=== PATIENT | female | born 1990 | race Caucasian/White ===

== ENCOUNTER 2017-02-18 08:01 | Emergency (ER) | payer OTHER ==
[~2017-02-18] VITALS: Ht 167.6 cm; Wt 76.5 kg
[2017-02-18 08:02] VITALS: Ht 167.6 cm; Wt 76.5 kg
[2017-02-18] MEDS ORDERED: SOD CHLORIDE 0.9% 1,000 ML IV STA (08:17)
[2017-02-18] MEDS ORDERED: KETOROLAC 30 MG INJ IV STA (08:17)
[2017-02-18 08:55] LABS: BASOPHILS % 0.3 % (0.0-2.0); EOSINOPHILS % 0.2 % (0.0-7.0); HEMATOCRIT 37.1 % (37.0-47.0); HEMOGLOBIN 12.4 g/dl (12.0-16.0); LYMPHOCYTES # 1.2 10^3/ul (0.8-2.9); LYMPHOCYTES % 10.6 % (15.0-51.0); MEAN CORPUSCULAR HEMOGLOBIN 28.3 pg (29.0-33.0); MEAN CORPUSCULAR HGB CONC 33.4 g/dl (32.0-37.0); MEAN CORPUSCULAR VOLUME 84.7 fl (82.0-101.0); MEAN PLATELET VOLUME 11.9 fl (7.4-10.4); MONOCYTE # 0.6 10^3/ul (0.3-0.9); MONOCYTES % 5.7 % (0.0-11.0); NEUTROPHIL # 9.3 10^3/ul (1.6-7.5); NEUTROPHILS % 82.7 % (39.0-77.0); PLATELET COUNT 187 10^3/UL (140-415); RED BLOOD COUNT 4.38 10^6/ul (4.20-5.40); RED CELL DISTRIBUTION WIDTH 14.1 % (11.5-14.5); WHITE BLOOD COUNT 11.2 10^3/ul (4.8-10.8)
[2017-02-18 09:08] LABS: ADD UMIC NO; UR ASCORBIC ACID NEGATIVE (NEGATIVE); UR BACTERIA FEW /HPF (NONE SEEN); UR BILIRUBIN (Dip) NEGATIVE (NEGATIVE); UR BLOOD (Dip) NEGATIVE (NEGATIVE); UR CLARITY SLIGHTLY CLOUDY (CLEAR); UR COLOR YELLOW (YELLOW); UR GLUCOSE (Dip) NEGATIVE (NEGATIVE); UR KETONES (Dip) NEGATIVE (NEGATIVE); UR LEUKOCYTE ESTERASE (Dip) NEGATIVE Leu/ul (NEGATIVE); UR MUCUS FEW /HPF (NONE SEEN); UR NITRITE (Dip) NEGATIVE (NEGATIVE); UR RBC 2 /HPF (0-5); UR SPECIFIC GRAVITY (Dip) 1.025 (1.003-1.030); UR SQUAMOUS EPITHELIAL CELL MODERATE /HPF (FEW); UR TOTAL PROTEIN (Dip) NEGATIVE (NEGATIVE); UR UROBILINOGEN (Dip) NEGATIVE (NEGATIVE)
--- NOTE | 2017-02-18 09:13 | ERD ---
ER Documentation Chief Complaint Date/Time DATE: 02/18/17 TIME: 09:07 Chief Complaint fever with body pain and dizziness x yesterday HPI 26-year-old otherwise healthy female presents the emergency department for complaints of fever, body aches which she describes as "bone pain", dizziness which she describes as lightheadedness, sore throat, and cough since yesterday. Patient states she is attempted to treat her symptoms with Motrin with only mild relief. She denies any nausea, vomiting, diarrhea, abdominal pain, dysuria , hematuria or vaginal discharge. ROS All systems reviewed and are negative except as per history of present illness. Allergies Allergies: Coded Allergies: No Known Drug Allergy (Verified Allergy, Unknown, 02/18/17) PMhx/Soc History of Surgery: Yes () Anesthesia Reaction: No Hx Neurological Disorder: No Hx Respiratory Disorders: No Hx Cardiac Disorders: No Hx Psychiatric Problems: No Hx Miscellaneous Medical Probl: Yes (9 months , due for next week. ) Hx Alcohol Use: No Hx Substance Use: No Hx Tobacco Use: No Physical Exam Vitals Vital Signs Date Time Temp Pulse Resp B/P Pulse Ox O2 Delivery O2 Flow Rate FiO2 02/18/17 08:02 101.0 99 18 110/59 100 Physical Exam Const: Well-developed, well-nourished, in mild distress Head: Atraumatic Eyes: Normal Conjunctiva ENT: Normal External Ears, Nose and Mouth. Anterior painful lymphadenopathy. Posterior pharynx erythematous with 2+ left-sided tonsillar swelling with exudate. Uvula midline. Phonation intact. No trismus. Neck: Full range of motion..~ No meningismus. Resp: Moving air well. Clear to auscultation bilaterally, no wheezes, rhonchus, or rales. Cardio: Regular rate and rhythm, no murmurs Abd: Soft, non tender, non distended. Normal bowel sounds Skin: No petechiae or rashes Back: No midline or flank tenderness Ext: No cyanosis, or edema Neur: Awake and alert Psych: Normal Mood and Affect Result Diagram: 02/18/17 0840 02/18/17 0840 Results 24 hrs Laboratory Tests Test 02/18/17 08:25 02/18/17 08:40 Urine Color YELLOW Urine Clarity SLIGHTLY CLOUDY Urine pH 6.0 Urine Specific [place] 1.025 Urine Ketones NEGATIVEmg/dL Urine Nitrite NEGATIVEmg/dL Urine Bilirubin NEGATIVEmg/dL Urine Urobilinogen NEGATIVEmg/dL Urine Leukocyte Esterase NEGATIVELeu/ul Urine Microscopic RBC 2/HPF Urine Microscopic WBC 3/HPF Urine Squamous Epithelial Cells MODERATE/HPF Urine Bacteria FEW/HPF Urine Mucus FEW/HPF Urine Hemoglobin NEGATIVEmg/dL Urine Glucose NEGATIVEmg/dL Urine Total Protein NEGATIVEmg/dl White Blood Count 11.210^3/ul Red Blood Count 4.3810^6/ul Hemoglobin 12.4g/dl Hematocrit 37.1% Mean Corpuscular Volume 84.7fl Mean Corpuscular Hemoglobin 28.3pg Mean Corpuscular Hemoglobin Concent 33.4g/dl Red Cell Distribution Width 14.1% Platelet Count 84057^3/UL Mean Platelet Volume 11.9fl Neutrophils % 82.7% Lymphocytes % 10.6% Monocytes % 5.7% Eosinophils % 0.2% Basophils % 0.3% Nucleated Red Blood Cells % 0.0/100WBC Neutrophils # 9.310^3/ul Lymphocytes # 1.210^3/ul Monocytes # 0.610^3/ul Eosinophils # 0.010^3/ul Basophils # 0.010^3/ul Nucleated Red Blood Cells # 0.010^3/ul Sodium Level 139mmol/L Potassium Level 3.9mmol/L Chloride Level 102mmol/L Carbon Dioxide Level 27mmol/L Anion Gap 14 Blood Urea Nitrogen 8mg/dl Creatinine 0.75mg/dl Glucose Level 93mg/dl Calcium Level 8.8mg/dl Total Bilirubin 0.2mg/dl Direct Bilirubin 0.00mg/dl Indirect Bilirubin 0.2mg/dl Aspartate Amino Transf (AST/SGOT) 25IU/L Alanine Aminotransferase (ALT/SGPT) 33IU/L Alkaline Phosphatase 56IU/L Total Protein 7.9g/dl Albumin 4.3g/dl Globulin 3.60g/dl Albumin/Globulin Ratio 1.19 Current Medications Medications (Trade) Dose Ordered Sig/Raulito Route PRN Reason Start Time Stop Time Status Last Admin Dose Admin Sodium Chloride (NS) 1,000 ml @ 1,000 mls/hr Q1H STAT IV 02/18/17 08:17 02/18/17 09:16 DC 02/18/17 08:44 Ketorolac Tromethamine (Toradol) 30 mg ONCE STAT IV 02/18/17 08:17 02/18/17 08:20 DC 02/18/17 08:43 Procedures/MDM This is a 26-year-old female who presents emergency department for complaints of fever, body aches, "bone pain", lightheadedness, sore throat, and cough 1 day. Vital signs reviewed. Patient febrile at 101.0 upon arrival. Patient otherwise not tachycardic normotensive and non-hypoxic. Physical exam with evidence of left-sided tonsillar swelling with exudate, however no signs concerning for peritonsillar abscess. Exam otherwise unremarkable. CBC showed no evidence of significantly elevated white blood cells or severe anemia. CMP showed no evidence of electrolyte abnormalities, severe acidosis, alkalosis , renal failure, or liver disease. UA showed no evidence of acute infection or hematuria. Urine test was negative. Patient's fever well controlled while in the emergency department. She received 1 L of fluids and reports improvement of her dizzy symptoms. Based on history and clinical exam findings the patient does not appear to have evidence of pneumonia, urinary tract infection, bacteremia, sepsis, or meningitis. For these reasons I do not believe it is necessary to obtain additional laboratory testing or diagnostic imaging. I believe it would be appropriate for symptom control, and close outpatient primary care follow-up. History and physical consistent with likely acute bacterial pharyngitis, cough, and fever. I have recommended Tylenol and Motrin for fever control as well as a humidifier and fluids. Patient to begin antibiotics. Based on patient's history of present illness and physical examination the decision was made to discharge. The patient was re-evaluated after ED treatment and stabilizing measures, and symptoms have improved. There is no evidence of life threatening injuries or illnesses at this time. On re-examination, patient resting in no distress, stable vital signs, reports feeling better and safe for discharge with outpatient follow up with PMD in 1-2 days. Patient given return precautions. Copies of the lab work provided to patient. Departure Diagnosis: Primary Impression: Fever Fever type: unspecified Qualified Code: R50.9 - Fever, unspecified fever cause Additional Impressions: Sore throat Cough Body aches SAULO PERRIN PA-C Feb 18, 2017 09:13
[2017-02-18 09:20] LABS: ALBUMIN 4.3 g/dl (3.3-4.9); ALBUMIN/GLOBULIN RATIO 1.19; BILIRUBIN,INDIRECT 0.2 mg/dl (0-1.1); BILIRUBIN,TOTAL 0.2 mg/dl (0.2-1.3); CALCIUM 8.8 mg/dl (8.4-10.2); CREATININE 0.75 mg/dl (0.44-1.00); POTASSIUM 3.9 mmol/L (3.5-5.1); TOTAL PROTEIN 7.9 g/dl (6.1-8.1)
[2017-02-18] MEDS ORDERED: AMO500 PO (09:39)
[2017-02-18] MEDS ORDERED: NAPR-260 PO (09:39)
[2017-02-18] MEDS ORDERED: D-ME473S2 PO (09:39)
[2017-02-18] MEDS ORDERED: ACET325T33 PO (09:39)
[2017-02-18 09:46] VITALS: BP 100/65; PULSE 80; RESP 17; TEMP 99.2
== END 2017-02-18 09:53 | disposition home or self-care (01) ==
LOC: FTE 08:01
DX: R50.9 Fever, unspecified (principal); J02.9 Acute pharyngitis, unspecified; R05 Cough; R52 Pain, unspecified
CPT/HCPCS: 36415; 80053; 81001; 85025; 96374; J1885; J7030; Z7502; 81003

== ENCOUNTER 2017-10-14 09:34 | Emergency (ER) | END 2017-10-14 13:01 | disposition left against medical advice (07) ==

== ENCOUNTER 2017-10-17 11:00 | Emergency (ER) | END 2017-10-17 11:24 | disposition left against medical advice (07) ==

== ENCOUNTER 2018-06-21 15:54 | Emergency (ER) | END 2018-06-21 18:16 | disposition home or self-care (01) ==

== ENCOUNTER 2018-06-24 21:13 | Emergency (ER) | END 2018-06-25 01:00 | disposition home or self-care (01) ==

== ENCOUNTER 2018-06-28 09:35 | Observation (INO) | END 2018-06-29 00:45 | disposition home or self-care (01) ==

== ENCOUNTER 2018-06-30 10:46 | Emergency (ER) | END 2018-06-30 16:58 | disposition home or self-care (01) ==

== ENCOUNTER 2018-11-15 12:53 | Emergency (ER) | payer OTHER ==
[~2018-11-15] VITALS: Ht 170.2 cm; Wt 85.7 kg
[~2018-11-15 12:53] MED LIST: FIORICET PO; HYDR-4011 PO
[2018-11-15 13:16] VITALS: BP 118/62; PULSE 81; RESP 18; Ht 170.2 cm; Wt 85.7 kg
--- NOTE | 2018-11-18 22:46 | ERD ---
ER Documentation Chief Complaint Chief Complaint feeling fatigue, dx;anemia taking iron pills HPI 28-year-old female patient with possible history of anemia presents to the ED stating that she feels weak and tired. States that she has bilateral numbness of her hands. Denies any fever, chills, nausea, vomiting, diarrhea, neck stif fness, vomiting, shortness of breath. Reports that her last menstruation was a few weeks ago. Denies any vaginal bleeding, vaginal discharge. ROS All systems reviewed and are negative except as per history of present illness. Medications Home Meds Active Scripts Acetamin/Butalbital/Caffeine* (Fioricet*) [id number] Tab, 1 TAB PO Q4H PRN for PAIN LEVEL 1-5, #30 TAB Prov:IRAIDA MORELOS DO 09/01/18 Hydrocodone/Acetaminophen ([place] 5-325 Tablet) 1 Each Tablet, 1 TAB PO Q6H PRN for PAIN, #7 TAB Prov:CHRISTIANO PHAN PA-C 06/30/18 Allergies Allergies: Coded Allergies: No Known Drug Allergy (Unverified Allergy, Unknown, 06/28/18) PMhx/Soc History of Surgery: No (2 c Section, plastic surgery , liposuction, breast implants) Anesthesia Reaction: Yes (vomiting) Hx Neurological Disorder: No Hx Respiratory Disorders: No Hx Cardiac Disorders: No Hx Psychiatric Problems: No Hx Miscellaneous Medical Probl: No Hx Alcohol Use: No Hx Substance Use: No Hx Tobacco Use: No Smoking Status: Never smoker FmHx Family History: No diabetes, No coronary disease Physical Exam Vitals Vital Signs Date Temp Pulse Resp B/P (MAP) Pulse Ox O2 O2 Flow FiO2 Time Delivery Rate 11/15/18 98.8 81 18 118/62 98 13:16 (80) Physical Exam Const: [id number], well-nourished. In no acute distress. Head: Atraumatic, normocephalic Eyes: Normal Conjunctiva without injection. No purulent discharge. PERRLA. EOMI ENT: Normal external ear. Ear canal without erythema. Tympanic membrane pearly hollingsworth without effusion or bulging. Nasal canal clear with normal turbinates. Moist oropharynx without tonsillar exudates. Non-erythematous pharynx. Uvula midline. No drooling. No trismus. Neck: No cervical midline tenderness. Full range of motion. No meningismus. No cervical lymphadenopathy. No JVD. Resp: Clear to auscultation bilaterally. No wheezing, rhonchi, rales, or crackles. No accessory muscle use. No retractions. Cardio: Regular rate and rhythm. No murmurs, rubs or gallops. Abd: Soft, non tender, non distended. Normal bowel sounds. No palpable masses. No rebound tenderness. No guarding. Negative McBurney's Point. Negative Becerra's Sign. Skin: Normal skin turgor. No petechiae or rashes Back: No midline tenderness. No CVA tenderness. Ext: No cyanosis, or edema. Distal pulses intact bilaterally. Neur: Awake and alert. Normal gait. Normal coordination. Cranial Nerves II- VII intact. Normal finger to nose. Muscle strength 5/5. Sensation intact. Psych: Normal Mood and Affect Result Diagram: 11/15/18 1616 11/15/18 1616 Results 24 hrs Laboratory Tests Test 11/15/18 16:16 11/15/18 16:17 White Blood Count 6.1 10^3/ul Red Blood Count 4.92 10^6/ul Hemoglobin 12.2 g/dl Hematocrit 39.0 % Mean Corpuscular Volume 79.3 fl Mean Corpuscular Hemoglobin 24.8 pg Mean Corpuscular Hemoglobin Concent 31.3 g/dl Red Cell Distribution Width 22.7 % Platelet Count 246 10^3/UL Mean Platelet Volume fl Immature Granulocytes % 0.200 % Neutrophils % 41.6 % Lymphocytes % 44.9 % Monocytes % 6.4 % Eosinophils % 6.1 % Basophils % 0.8 % Nucleated Red Blood Cells % 0.0 /100WBC Immature Granulocytes # 0.010 10^3/ul Neutrophils # 2.5 10^3/ul Lymphocytes # 2.7 10^3/ul Monocytes # 0.4 10^3/ul Eosinophils # 0.4 10^3/ul Basophils # 0.1 10^3/ul Nucleated Red Blood Cells # 0.0 10^3/ul Sodium Level 141 mmol/L Potassium Level 4.2 mmol/L Chloride Level 103 mmol/L Carbon Dioxide Level 26 mmol/L Anion Gap 12 Blood Urea Nitrogen 12 mg/dl Creatinine 0.55 mg/dl Est Glomerular Filtrat Rate mL/min > 60 mL/min Glucose Level 80 mg/dl Calcium Level 9.4 mg/dl Total Bilirubin 0.3 mg/dl Direct Bilirubin 0.00 mg/dl Indirect Bilirubin 0.3 mg/dl Aspartate Amino Transf (AST/SGOT) 27 IU/L Alanine Aminotransferase (ALT/SGPT) 48 IU/L Alkaline Phosphatase 67 IU/L Total Protein 7.7 g/dl Albumin 4.5 g/dl Globulin 3.20 g/dl Albumin/Globulin Ratio 1.40 Thyroid Stimulating Hormone (TSH) 0.603 MIU/L Free Thyroxine Index 2.02 ug/ml Thyroxine (T4) 6.6 ug/dl Triiodothyronine (T3) Uptake 30.6 % POC Beta HCG, Qualitative NEGATIVE Procedures/MDM 28-year-old female patient with possible history of anemia presents ED complaining of fatigue and tiredness. Patient is afebrile and nontoxic- appearing. Patient was further worked up with CBC, CMP, urine , thyroid panel. CBC: No leukocytosis. No e/o of systemic infection. No e/o anemia. CMP: No e/o severe acidosis, alkalosis, renal failure, diabetic ketoacidosis, liver disease Urine : Negative Thyroid panel negative Low suspicion for symptomatic anemia, ectopic , carotid dissection, acute myocardial infarction, pneumothorax, pericarditis, myocarditis, endocarditis, pneumonia, cardiac tamponade, pulmonary embolism, pleural effusion, AAA, aortic dissection, Boerhaave's syndrome, cardiac dysrhythmias,meningitis, intracranial bleed, seizure, stroke, TIA or other emergent conditions. Diagnosis: Encounter for Laboratory Test Follow up with primary care physician in 1-2 days. Instructed patient to return to the ED sooner for any worsening symptoms. Patient's questions were answered. Patient is hemodynamically stable. Patient understood and agreed with discharge plan. Patient discharged stable. Disclaimer: Inadvertent spelling and grammatical errors are likely due to EHR/dictation software use and do not reflect on the overall quality of patient care. Also, please note that the electronic time recorded on this note does not necessarily reflect the actual time of the patient encounter. Departure Diagnosis: Primary Impression: Encounter for laboratory test Condition: Stable Patient Instructions: Paraesthesias Referrals: COMMUNITY CLINICS YOU HAVE RECEIVED A MEDICAL SCREENING EXAM AND THE RESULTS INDICATE THAT YOU DO NOT HAVE A CONDITION THAT REQUIRES URGENT TREATMENT IN THE EMERGENCY DEPARTMENT. FURTHER EVALUATION AND TREATMENT OF YOUR CONDITION CAN WAIT UNTIL YOU ARE SEEN IN YOUR DOCTORS OFFICE WITHIN THE NEXT 1-2 DAYS. IT IS YOUR RESPONSIBILITY TO MAKE AN APPOINTMENT FOR FOLOW-UP CARE. IF YOU HAVE A PRIMARY DOCTOR --you should call your primary doctor and schedule an appointment IF YOU DO NOT HAVE A PRIMARY DOCTOR YOU CAN CALL OUR PHYSICIAN REFERRAL HOTLINE AT IF YOU CAN NOT AFFORD TO SEE A PHYSICIAN YOU CAN CHOSE FROM THE FOLLOWING [facility] [address] [place] [facility] [address] [facility] [address] [facility] [address] [facility] [address] [facility]. [facility] [address] [facility]. [facility] YOU HAVE RECEIVED A MEDICAL SCREENING EXAM AND THE RESULTS INDICATE THAT YOU DO NOT HAVE A CONDITION THAT REQUIRES URGENT TREATMENT IN THE EMERGENCY DEPARTMENT. FURTHER EVALUATION AND TREATMENT OF YOUR CONDITION CAN WAIT UNTIL YOU ARE SEEN IN YOUR DOCTORS OFFICE WITHIN THE NEXT 1-2 DAYS. IT IS YOUR RESPONSIBILITY TO MAKE AN APPOINTMENT FOR FOLOW-UP CARE. IF YOU HAVE A PRIMARY DOCTOR --you should call your primary doctor and schedule and appointment IF YOU DO NOT HAVE A PRIMARY DOCTOR YOU CAN CALL OUR PHYSICIAN REFERRAL HOTLINE AT . IF YOU CAN NOT AFFORD TO SEE A PHYSICIAN YOU CAN CHOSE FROM THE FOLLOWING [facility] INSTITUTIONS[facility] [address] [place] [address] [facility] [address] [place] [address] [facility] [address] [place] [address] [facility] URGENT CARE/SPECIALTIES Additional Instructions: Call your primary care doctor TOMORROW for an appointment during the next 2-3 days.See the doctor sooner or return here if your condition worsens before your appointment time. CHRISTIANO PHAN PA-C Nov 18, 2018 22:46
== END 2018-11-15 20:13 | disposition home or self-care (01) ==
LOC: FTE 12:53
DX: R53.83 Other fatigue (principal); Z00.00 Encounter for general adult medical examination without abnormal findings
CPT/HCPCS: 80053; 81025; 84436; 84443; 84479; 85025; 99283